=== PATIENT | male | born 1965 | race Caucasian/White ===

== ENCOUNTER 2020-03-20 13:01 | Emergency (ER) | payer BC ==
[~2020-03-20] VITALS: Ht 175.3 cm; Wt 90.0 kg
[2020-03-20 13:32] VITALS: BP 147/94
--- NOTE | 2020-03-20 14:54 | RAD ---
Examination: KNEE LEFT 3V, LEFT FEMUR XRAY History: Reason: DROPPED 500LB SAFE ONTO THIGH /pain Comparison/Correlation: None Findings: 3 images of the left knee and 4 images of the left femur were provided. Joint spaces are normal. No acute fracture or bone destruction. Soft tissues are unremarkable. Deformity of the left proximal fibular neck contour is present. Correlate with previous history of trauma. Impression: No acute process. Electronically signed by: Vitor Lynn MD (03/20/2020 2:52 PM) [id number]
--- NOTE | 2020-03-20 15:28 | PHYS DOC ---
Past History Past Medical History: No Pertinent History Past Surgical History: Other Additional Past Surgical Histo: CERVICAL SPINE FUSION Alcohol Use: Rarely Adult General Chief Complaint Chief Complaint: LOWER EXT PAIN HPI HPI Patient is a 54 male patient who presents with pain to his left femur. Patient reports he had been moving a large safe yesterday on a 2 wheeled chelo, when he was pulling on a trailer, his feet slipped out underneath him and the safe on the chelo fell backwards, striking him on the left upper leg. States he was just concerned that it may have been broken. States he has been walking, with minimal discomfort, he had taken some ibuprofen last night and it helped the discomfort, but Ibuprofen makes him sweat. States he was more worried about the swelling in his leg. Denies any additional discomfort or concerns. Review of Systems Review of Systems Constitutional: Denies fever or chills [] Eyes: Denies change in visual acuity, redness, or eye pain [] HENT: Denies nasal congestion or sore throat [] Respiratory: Denies cough or shortness of breath [] Cardiovascular: No additional information not addressed in HPI [] GI: Denies abdominal pain, nausea, vomiting, bloody stools or diarrhea [] : Denies dysuria or hematuria [] Musculoskeletal: Denies back pain or joint pain does complain of left upper leg pain [] Integument: Denies rash or skin lesions [] Neurologic: Denies headache, focal weakness or sensory changes [] Endocrine: Denies polyuria or polydipsia [] All other systems were reviewed and found to be within normal limits, except as documented in this note. Allergies Allergies Allergies Coded Allergies Type Severity Reaction Last Updated Verified No Known Drug Allergies 12/23/15 No Physical Exam Physical Exam Constitutional: Well developed, well nourished, no acute distress, non-toxic appearance. [] HENT: Normocephalic, atraumatic, bilateral external ears normal, oropharynx moist, no oral exudates, nose normal. [] Eyes: PERRLA, EOMI, conjunctiva normal, no discharge. [] Neck: Normal range of motion, no tenderness, supple, no stridor. [] Cardiovascular:Heart rate regular rhythm, no murmur [] Lungs & Thorax: Bilateral breath sounds clear to auscultation [] Abdomen: Bowel sounds normal, soft, no tenderness, no masses, no pulsatile masses. [] Skin: Warm, dry, no erythema, no rash. [] Back: No tenderness, no CVA tenderness. [] Extremities: No tenderness, no cyanosis, no clubbing, ROM intact, no edema. Full range of motion. Minimal swelling noted to anterior leg compared to right leg. [] Neurologic: Alert and oriented X 3, normal motor function, normal sensory function, no focal deficits noted. [] Psychologic: Affect normal, judgement normal, mood normal. [] Current Patient Data Vital Signs Vital Signs Date Time Temp Pulse Resp B/P (MAP) Pulse Ox O2 Delivery O2 Flow Rate FiO2 03/20/20 13:32 98.7 69 20 147/94 (111) 98 Room Air EKG EKG [] Radiology/Procedures Radiology/Procedures PROCEDURE: LEFT FEMUR XRAY Examination: KNEE LEFT 3V, LEFT FEMUR XRAY History: Reason: DROPPED 500LB SAFE ONTO THIGH /pain Comparison/Correlation: None Findings: 3 images of the left knee and 4 images of the left femur were provided. Joint spaces are normal. No acute fracture or bone destruction. Soft tissues are unremarkable. Deformity of the left proximal fibular neck contour is present. Correlate with previous history of trauma. Impression: No acute process. Electronically signed by: Vitor Lynn MD (03/20/2020 2:52 PM) [id number] [] Heart Score Risk Factors: Risk Factors: DM, Current or recent (<one month) smoker, HTN, HLP, family history of CAD, obesity. Risk Scores: Risk Factors: DM, Current or recent (<one month) smoker, HTN, HLP, family hist ory of CAD, obesity. Course & Med Decision Making Course & Med Decision Making Pertinent Labs and Imaging studies reviewed. (See chart for details) [] Reviewed imaging results with no noted fracture or acute concerns on imaging. Recommend continued ice, Tylenol / ibuprofen as needed. Follow-up with primary care as needed. Patient agreed with this plan with no further present concerns Dragon Disclaimer Dragon Disclaimer This electronic medical record was generated, in whole or in part, using a voice recognition dictation system. Departure Departure: Impression: Primary Impression: Contusion of leg, left Disposition: 01 DC HOME SELF CARE/HOMELESS Condition: GOOD Referrals: NARGIS LUEVANO MD (PCP) Patient Instructions: Contusion, [id number] Additional Instructions: As we discussed, continue to take Tylenol or ibuprofen as needed for discomfort. You may take 600 mg of ibuprofen every 6 hours and/or Tylenol 650 mg every 4 hours for discomfort. You may continue to use ice or heat whichever is more comfortable for you. Follow-up with your primary care provider as needed Problem Qualifiers Primary Impression: Contusion of leg, left Encounter type: initial encounter Qualified Codes: S80.12XA - Contusion of left lower leg, initial encounter ADAN KENNY APRN Mar 20, 2020 15:28
== END 2020-03-20 15:40 | disposition home or self-care (01) ==
LOC: ER 13:01
DX: S80.02XA Contusion of left knee, initial encounter (principal); M79.652 Pain in left thigh; R60.0 Localized edema; Z98.890 Other specified postprocedural states; W18.09XA Striking against other object with subsequent fall, initial encounter; Y93.89 Activity, other specified; Y92.89 Other specified places as the place of occurrence of the external cause; Y99.8 Other external cause status
CPT/HCPCS: 73552; 73562; 99284